=== PATIENT | female | born 1995 | race Caucasian/White ===

== ENCOUNTER 2017-06-17 14:46 | Emergency (ER) | payer OTHER ==
[2017-06-17 14:47] VITALS: BMI 20.1
[2017-06-17 15:05] VITALS: BP 110/70; PULSE 72; RESP 20; TEMP 98.7; O2SAT 100
--- NOTE | 2017-06-17 15:17 | C.PDOC ---
History Of Present Illness 22 y/o female with Hx of PTSD presents to ED with complaints of feeling stressed and anxiety. Patient states she saw PMD at [facility] and was given Xanax for anxiety. Patient reports taking one dose of Xanax today and went shopping with brother following an episode of sob, chest pain and anxious feeling. Patient states she felt like "she was going to pass out" and relates everything to Anxiety. Patient is requesting to speak to someone from crisis. No other complaints at this time. Time Seen by Provider: 06/17/17 15:03 Chief Complaint (Nursing): Psychiatric Evaluation History Per: Patient History/Exam Limitations: no limitations Onset/Duration Of Symptoms: Days Current Symptoms Are (Timing): Still Present Suicide/Self Injury Attempted (Context): None Modifying Factor(s): None Severity: Mild Associated Symptoms: Anxiety Recent travel outside of the [place]: No Additional History Per: Patient Past Medical History Reviewed: Historical Data, Nursing Documentation, Vital Signs Vital Signs: Last Vital Signs Temp 98.7 F 06/17/17 14:52 Pulse 72 06/17/17 14:52 Resp 20 06/17/17 14:52 BP 110/70 06/17/17 14:52 Pulse Ox 100 06/17/17 16:19 - Medical History PMH: Anxiety, Depression, Post Traumatic Stress Disorder Surgical History: No Surg Hx Family History: States: No Known Family Hx - Social History Hx Alcohol Use: No Hx Substance Use: No - Immunization History Hx Tetanus Toxoid Vaccination: Yes Hx Influenza Vaccination: Yes Hx Pneumococcal Vaccination: No Review Of Systems Except As Marked, All Systems Reviewed And Found Negative. Constitutional: Negative for: Fever, Chills Cardiovascular: Positive for: Chest Pain Respiratory: Positive for: Shortness of Breath Gastrointestinal: Negative for: Nausea, Vomiting, Diarrhea Skin: Negative for: Rash Neurological: Negative for: Numbness Psych: Positive for: Anxiety Physical Exam - Physical Exam Appears: Non-toxic, No Acute Distress Skin: Normal Color, Warm, Dry, No Rash Head: Atraumatic, Normacephalic Eye(s): bilateral: Normal Inspection, EOMI Oral Mucosa: Moist Chest: Symmetrical Cardiovascular: Rhythm Regular Respiratory: Normal Breath Sounds, No Rales, No Rhonchi, No Wheezing Gastrointestinal/Abdominal: Soft, No Tenderness, No Guarding, No Rebound Extremity: Normal ROM, Capillary Refill (<2 seconds) Neurological/Psych: Oriented x3, Normal Speech, Normal Cognition Gait: Steady ED Course And Treatment ECG: Interpreted By Me ECG Rhythm: Sinus Rhythm ECG Interpretation: Normal Rate From EC O2 Sat by Pulse Oximetry: 100 (RA) Pulse Ox Interpretation: Normal Progress Note: Case discussed and patient evaluated by vegetable i farmworker who provided the patient with outpatient referrals. Patient discharged in stable condition Reassessment Condition: Improved Medical Decision Making Medical Decision Making: Plan: * Discussed with Crisis for evaluation * * Patient requesting information for outpatient services for anxiety and difficulty falling asleep Disposition Counseled Patient/Family Regarding: Diagnosis, Need For Followup - Disposition [facility] Disposition: HOME/ ROUTINE Disposition Time: 15:50 Condition: STABLE Additional Instructions: Return to ED if any increase symptoms Follow up with outpatient services Instructions: Insomnia (ED), Anxiety (ED) Forms: [employer] (Kazakh) - POA Present On Arrival: None - Clinical Impression Clinical Impression: Anxiety, Insomnia due to anxiety and fear - Scribe Statement The provider has reviewed the documentation as recorded by the Scribbonita Will All medical record entries made by the Scribbonita were at my direction and personally dictated by me. I have reviewed the chart and agree that the record accurately reflects my personal performance of the history, physical exam, medical decision making, and the department course for this patient. I have also personally directed, reviewed, and agree with the discharge instructions and disposition.
--- NOTE | 2017-06-20 18:10 | CARD ---
APPROVED REPORT EKG Measurement Heart [id number] <Conclusion> Normal sinus rhythm Normal ECG
== END 2017-06-17 16:19 | disposition home or self-care (01) ==
LOC: C.ER 14:46
DX: F51.05 Insomnia due to other mental disorder (principal)

== ENCOUNTER 2017-06-22 13:17 | Emergency (ER) | payer OTHER ==
[2017-06-22 13:17] VITALS: BMI 20.1
[2017-06-22 13:28] VITALS: BP 107/68; PULSE 89; RESP 18; TEMP 97.9; O2SAT 98
--- NOTE | 2017-06-22 13:58 | C.PDOC ---
History Of Present Illness 22 yr old female presents to the ER with complaints of increased anxiety for the past few days. She reports she is unable to sleep due to PTSD/insomnia. Patient was recently seen for similar complaint, but never followed up. Patient denies fever, chest pain, SOB, nausea, vomiting, abdominal pain, weakness or numbness. Time Seen by Provider: 06/22/17 13:41 Chief Complaint (Nursing): Anxiety History Per: Patient History/Exam Limitations: no limitations Onset/Duration Of Symptoms: Days Past Medical History Reviewed: Historical Data, Nursing Documentation, Vital Signs Vital Signs: Last Vital Signs Temp 97.9 F 06/22/17 13:24 Pulse 89 06/22/17 13:24 Resp 18 06/22/17 13:24 BP 107/68 06/22/17 13:24 Pulse Ox 98 06/22/17 14:09 - Medical History PMH: Anxiety, Depression, Post Traumatic Stress Disorder Surgical History: No Surg Hx Family History: States: No Known Family Hx - Social History Hx Alcohol Use: No Hx Substance Use: No - Immunization History Hx Tetanus Toxoid Vaccination: Yes Hx Influenza Vaccination: Yes Hx Pneumococcal Vaccination: No Review Of Systems Except As Marked, All Systems Reviewed And Found Negative. Constitutional: Negative for: Fever Cardiovascular: Negative for: Chest Pain Respiratory: Negative for: Shortness of Breath Gastrointestinal: Negative for: Nausea, Vomiting, Abdominal Pain Neurological: Negative for: Weakness, Numbness Psych: Positive for: Anxiety Physical Exam - Physical Exam Appears: Non-toxic, Other ((+) Anxious ) Skin: Warm, Dry, No Rash Head: Atraumatic, Normacephalic Eye(s): bilateral: Normal Inspection, PERRL, EOMI Oral Mucosa: Moist Neck: Normal ROM Chest: Symmetrical, No Tenderness Cardiovascular: Rhythm Regular, No Murmur Respiratory: Normal Breath Sounds, No Rales, No Rhonchi, No Wheezing Extremity: Normal ROM, No Deformity, No Swelling Neurological/Psych: Oriented x3, Normal Speech, Other (Anxious mood) ED Course And Treatment O2 Sat by Pulse Oximetry: 98 (RA ) Pulse Ox Interpretation: Normal Medical Decision Making Medical Decision Making: Patient evaluated complains of anxiety. Will consult can intake worker. Patient was seen and evaluated by fitness worker. Patient has an appointment with Dr. Yang on 06/22/2017 at 4pm. Patient stable for discharge has meds at home. Disposition Counseled Patient/Family Regarding: Diagnosis, Need For Followup - Disposition Referrals: Cielo Yang MD [Staff Provider] - Disposition: HOME/ ROUTINE Disposition Time: 14:30 Condition: STABLE Additional Instructions: Please follow up outpatient with Dr Yang at 4 pm. If you need to speak to someone immediately call Crisis Hotline [phone] Instructions: Generalized Anxiety Disorder (ED) Forms: [employer] (Georgian) - POA Present On Arrival: None - Clinical Impression Clinical Impression: Insomnia due to anxiety and fear, Anxiety - PA / CORPORATE TUTOR / Resident Statement MD/DO has reviewed & agrees with the documentation as recorded. - Scribe Statement The provider has reviewed the documentation as recorded by the Scribe Cassie Melara All medical record entries made by the Juanibbonita were at my direction and personally dictated by me. I have reviewed the chart and agree that the record accurately reflects my personal performance of the history, physical exam, medical decision making, and the department course for this patient. I have also personally directed, reviewed, and agree with the discharge instructions and disposition.
== END 2017-06-22 14:31 | disposition home or self-care (01) ==
LOC: C.ER 13:17
DX: F51.05 Insomnia due to other mental disorder (principal)